=== PATIENT | male | born 1965 | race Caucasian/White ===

== ENCOUNTER 2019-02-05 18:14 | Emergency (ER) | payer BC, OTHER ==
[~2019-02-05] VITALS: Ht 185.4 cm; Wt 101.0 kg
[2019-02-05 18:20] VITALS: BP 126/83
--- NOTE | 2019-02-05 21:03 | NUR ---
Ramo from vascular called to let us know that he rcvd the page will be here soon
--- NOTE | 2019-02-05 21:03 | NUR ---
DEBORAH CALLED BACK AT 21:02
== END 2019-02-05 22:47 | disposition home or self-care (01) ==
LOC: ER 18:15
DX: M79.662 Pain in left lower leg (principal); J45.909 Unspecified asthma, uncomplicated; G89.29 Other chronic pain; Z72.0 Tobacco use
CPT/HCPCS: 93971; 99284

== ENCOUNTER 2025-05-05 09:16 | Emergency (ER) | payer BC, OTHER ==
[~2025-05-05] VITALS: Ht 185.4 cm; Wt 115.7 kg
[~2025-05-05 09:16] MED LIST: SACU1TAB PO
--- NOTE | 2025-05-05 09:27 | Physician Documentation ---
History of Present Illness ~ Stated Complaint: HEAD LAC Time Seen by MD: 09:24 OK to notify your PCP?: Yes Primary Medical Doctor: [facility] HPI This is a 60-year-old gentleman who presents for evaluation of traumatic injuries sustained on the job. He is to the up from under the car and hit his head. Reports an immediate onset sharp nonradiating pain in his head. The particular palliating or aggravating factors. Did not attempt to treat his symptoms. Reports mild bleeding that subsequently got spontaneously controlled. Denies any other injury. Denies loss of consciousness, nausea, vomiting, denies blood thinners. Denies any other injury. No concern for tobacco, alcohol or illicit substances use Tetanus within 5 years?: Yes Medication Reconciliation Allergies: Coded Allergies: No Known Allergies (Unverified , 05/05/25) Scheduled Sacubitril/Valsartan (Entresto 24 mg-26 mg Tablet), 1 TAB PO BID, (Reported) Past Medical History Past Medical History: Arrhythmia, Asthma Past Surgical History: orthopedic surgeries Drug Use: none Lives In: Home Review of Systems ROS 10 point review of systems was performed and unless noted above in HPI is negative for acute process/complaint. Physical Exam Physical Exam Physical examination: GENERAL: Awake, alert, oriented, GCS 15, no apparent distress, non-toxic appearing, answers questions, follows commands appropriately. HEENT: Atraumatic, normocephalic, pupils equal, extraocular muscles intact Active gross movements, sclerae anicteric, mucus membranes moist, no stridor. NECK: Midline, no JVD CARDIOVASCULAR: Good skin perfusion without evidence of pallor, mottling. PULMONARY: Nonlabored, symmetric chest rise, no audible wheezing, no accessory muscle use, no respiratory distress, speaking in full sentences. GASTROINTESTINAL: Not distended. NEUROLOGIC: Lucid with normal mental status. Normal facial symmetry. Moves all extremities symmetrically and with purpose. No truncal ataxia. Speech is fluid without evidence of dysarthria or aphasia, no focal deficits appreciated. EXTREMITIES: Acute deformities Skin: warm, dry PSYCHIATRIC: Normal affect, normal insight, normal concentration. Focused exam: There is a crescent shaped laceration with a partial depth to the vertex of his head. No active bleeding. No contamination. No foreign body. No evidence of skull fracture Procedures Laceration/Wound Repair Laceration/Wound Repair : Anesthesia: Lidocaine w/ Epi Prep: irrigated by nurse Undermining: none Foreign Body: not identified Repaired: skin Wound Repaired With: lianet Number of Superficial Sutures: 6 Dressing Applied: none Tolerated Procedure Well?: yes, no complications Progress Results/Orders Results/Orders Orders - EDGAR LEAL DO Ct Head (05/05/25 10:21) Completed Orders - EDGAR LEAL DO Ct Head (05/05/25 10:21) Tetanus/Pertuss/Diph Acell/Pf (Boostrix (05/05/25 09:25) Lidocaine 1% W/Epi 1:100,000 (Xylocaine (05/05/25 09:55) Medications Received in ER Medications (Trade) Dose Ordered Sig/Aliyah Route PRN Reason Start Time Stop Time Status Last Admin Dose Admin (Boostrix vaccine syringe) 0.5 ml ONCE ONCE IMVAC 05/05/25 09:25 05/05/25 09:26 DC 05/05/25 09:40 0.5 ML Vital Signs 05/05/25 09:21 Temp 97.9 Pulse 58 Resp 18 B/P (MAP) 143/86 Pulse Ox 97 O2 Flow Rate 0 Medical Decision Making Findings Facility Status: ED Holds, RME process The plan was discussed with the patient, who demonstrates clear understanding of the plan and is in agreement with the plan unless otherwise noted in the chart. All questions have been answered, all concerns were addressed unless otherwise documented. I was available throughout their ED stay for frequent reassessment and questions. Differential Diagnoses (considered and possible or likely): [Closed head injury, concussion, subdural, subarachnoid, scalp laceration.] ??Differential Diagnoses (considered and unlikely, not requiring evaluation currently): [Cervical spine fracture or subluxation are very unlikely given lack of tenderness to palpation over midline, full range of motion, lack of pain.] MDM Data Please see HPI for the following: Independent Historians and external Records Review. Historian: [Patient] Independent Historians: ?[Record review] Medication Management: [Reviewed medication list] Social History and determinants: [Reviewed] Please see the body of the note for the following: Any independent interpretations of ECG, imaging studies. All vitals signs/haemodynamics, ordered tests were independently reviewed and interpreted by myself. Nursing triage complaint and vitals reviewed, additional nursing notes were reviewed as available and I agree unless otherwise noted or documented in contradiction in the chart Vital Signs: Independently reviewed Labs: Independently interpreted Imaging: Independently interpreted Old Medical Records: Independently reviewed, see HPI for relevant summary and information Pulse Oximetry: [96%] interpreted as [normal on room air] by me Additionally notably showing: [Hemodynamically stable. CT shows no bleed.] Tests considered but not ordered include: [Hematologic workup has been considered but does not appear to be necessary given mechanical nature of the injury.] Social Determinants of Health Impact: Patient was evaluated in [facility] which [facility] a [facility] with limited access to [facility] due to below par ratio of patient to medical providers. [] Comorbid Conditions Impacting Present Evaluation and Care/Treatment: [None] Management Discussions with other Healthcare Providers: [None] Treatment and Disposition Medication Management (Given or considered): []. See EMR for details Consideration for Hospitalization/Escalation/Deescalation of Care: Admission for observation has been considered, [however the patient is able to tolerate p.o., their symptoms are controlled, they are able to rely on oral medications, and their chief complaint/diagnosis can be managed on outpatient basis.] ?ED Course:?[Laceration was repaired. Patient tolerated procedure well.] ?Shared decision making:?[Patient is hemodynamically stable for discharge home w ith follow with their primary care provider. [ ] Specific and cautious return precautions provided and discussed with full understanding. Any incidental findings were also discussed and follow up recommendations given. [] All questions answered. Patient/family were able to verbalize back return precautions. Patient/family agree to plan. Copies of imaging and laboratory studies were provided.] Code status:?FULL Please see the full Electronic Medical Record for full details of nursing documentation, medications list, other records of complete past medical history and conditions, vital signs, laboratory studies, and any radiologic study interpretations by radiologists. Portions of this note were completed using [employer]IV[employer] dictation software and as a result there may exist minor errors in spelling. I have reviewed elements of past family and social history and agree as included in note. Departure Disposition: HOME / SELF CARE / HOMELESS Impression: Primary Impression: Closed head injury Additional Impressions: Acute traumatic pain Scalp laceration Tetanus toxoid inoculation Condition: Improved Discharge Instructions: Head Injury, Adult, Laceration Care, Adult, [id number] Additional Instructions: Please return for suture removal or go to primary care provider for the same in 10 days. Referrals: NO PRIMARY CARE PROVIDER (PCP) Education Educated: Patient Educated regarding: diagnosis, treatment, prognosis, need for follow up Signature Scribe Signature: No scribe Attestation: This note accurately reflects clinical decisions, work performed by myself, DO MEL Roa NICHOLAS M DO May 05, 2025 09:27
[2025-05-05] MEDS: TETanus/Pertussis (Acell)/Diphther VAC/PF (Tdap-Adult) 0.5ml syringe IMVAC ONE (09:40)
[2025-05-05] MEDS: LIDOcaine 1% W/epiNEPHrine 1:100,000 20ml vial SQ ONE (09:55)
--- NOTE | 2025-05-05 10:44 | RADIOLOGY REPORT ---
CLINICAL INFORMATION: 60 years old, Male; Head strike, pain at the vertex. TECHNIQUE: Axial imaging was obtained through the brain without contrast. Coronal and sagittal reform atted images were obtained, reviewed, and stored. Images were reviewed in brain and bone windows. Al l CT scans at this medical facility are performed using dose modulation techniques as appropriate to a performed exam including the following: Automated exposure control was utilized; adjustment of the MA and/or KV according to patient size; and use of iterative reconstruction technique. CTDIvol = 59.1 , 63.72, 0.14 mGy DLP = 1239 mGy-cm COMPARISON: None FINDINGS: There is no acute intracranial hemorrhage. No mass effect or midline shift. The ventricles and sulci are within normal limits in size for age. Basal cisterns are patent. The calvarium is unre markable. Mild mucosal thickening of the paranasal sinuses. IMPRESSION: No CT evidence of acute intracranial abnormality.
[2025-05-05 13:33] VITALS: BP 140/78; PULSE 60; RESP 16; TEMP 98.2; O2SAT 97
== END 2025-05-05 13:35 | disposition home or self-care (01) ==
LOC: ER 09:16
DX: S01.01XA Laceration without foreign body of scalp, initial encounter (principal); R51.9 Headache, unspecified; Z23 Encounter for immunization; J45.909 Unspecified asthma, uncomplicated; G89.11 Acute pain due to trauma; X58.XXXA Exposure to other specified factors, initial encounter; Y93.89 Activity, other specified; Y92.89 Other specified places as the place of occurrence of the external cause; Y99.8 Other external cause status
CPT/HCPCS: 12001; 70450; 90471; 90715; 99285; A6449